=== PATIENT | female | born 1970 | race Caucasian/White ===

== ENCOUNTER 2016-09-04 15:40 | Outpatient (CLI) | payer OTHER ==
--- NOTE | 2016-09-04 17:40 | DIAGNOSTIC IMAGING REPORT ---
PROCEDURE: US COMPLETE PELVIC W/TRANSVAG INDICATION: PELVIC PAIN TECHNIQUE: Transabdominal and endovaginal de la o scale and color Doppler sonographic images of the female pelvis were obtained. COMPARISON: Pelvic ultrasound 02/19/2008 FINDINGS: TRANSABDOMINAL SCANS: The uterus is of normal size 6.4 x 3.8 cm Kidneys are normal. TRANSVAGINAL SCANS: The uterus is anteverted. Myometrium is normal. The endometrium measures 3.6 mm. There is a 9 mm Nabothian cyst. Right ovary is normal measuring 2.9 x 2.4 x 1.7 cm. Multiple of follicles are noted. The largest measures 13 mm. The left ovary is normal measuring 2.9 x 2.5 at 2.5 cm. Multiple follicles again noted. The largest measures 19 mm. There is a trace of free fluid. IMPRESSION: 1. Normal uterus and ovaries and kidneys.
== END 2016-09-04 23:00 ==
LOC: US SRH 15:40
DX: R10.2 Pelvic and perineal pain (principal)